=== PATIENT | male | born 1945 | race Caucasian/White ===

== ENCOUNTER 2022-07-16 11:25 | Outpatient (CLI) | payer MEDICARE, OTHER, SELFPAY ==
--- OUTSIDE RECORDS SUMMARY | 2022-07-16 09:05 | XMS_ITS | Clinical Summary ---
:1945 Author Organization [facility] [place] [address] Care Team Providers Name Role Phone Radha Cazares MD Primary Care Provider Allergies Active Allergy Reactions Severity Noted Date Comments Donepezil Headache 06/09/2021 Medications Medication Sig Dispensed Refills Start Date End Date Status aspirin (ECOTRIN) 81 mg Take 1 tablet by 0 7 Active enteric coated tablet mouth once daily with a meal. latanoprost (XALATAN) Place 0.005 0 08/02/2017 Active 0.005 % ophthalmic Drops into both solution eyes once daily. omeprazole (PRILOSEC) Take 1 capsule 1 09/13/2017 Active 40 mg Delayed-Release by mouth once capsule daily before a meal. losartan-hydrochlorothi Take 1 tablet by 0 9 Active azide (HYZAAR) 100-12.5 mouth once mg tablet daily. diltiazem CD (CARDIZEM Take 1 capsule 0 04/16/2019 Active CD) 180 mg extended by mouth once release 24 hr capsule daily. tamsulosin (FLOMAX) 0.4 Take 1 Capsule 90 Capsule 3 12/07/2021 Active mg capsuleIndications: (0.4 mg) by Benign prostatic mouth once daily hyperplasia with after a meal. urinary frequency pyridostigmine Take 1.5 Tablets 360 Tablet 3 12/07/2021 Active (MESTINON) 60 mg (90 mg) by mouth tabletIndications: 4 times daily. Urinary urgency Active Problems Problem Noted Date Urinary frequency 10/05/2017 Encounters Date Type Specialty Care Team Description 05/11/2022 Lab Requisition Kathya Osorio MD from Last 3 Months Immunizations Name Administration Dates Next Due COVID-19 vaccine ([email or web address] 12/03/2020, 11/12/2020 30mcg/0.3mL) PF, MDV Hepatitis A (Adult) 06/11/2005 Influenza A (H1N1), Inactivated 10/16/2009 Influenza, High-dose Inactivated 07/13/2018, 08/30/2017, Influenza, High-dose Quadrivalent 07/09/2021 Inactivated Influenza, IIV3 (Age 6-35 mos) 06/17/2011 Influenza, IIV3 (Age >=3 years) 08/01/2013, 06/12/2012, 07/03, 08/05/2009, 07/18/2008 Influenza, IIV4 07/10/2015, 10/16/2009 Influenza, IIV4 (=>6mos) MDV 07/16/2014 Pneumococcal Poly,23-Valent 05/25/2011 (Pneumovax) Pneumococcal conj 13-Valent (Prevnar 11/08/2016 13) Td (Age >=7 Years) 06/21/2003 Td, Preservative Free (age >= 7 06/11/2005 Years) Tdap 06/12/2012 Zoster (Shingrix-RZV, recombinant) 09/18/2020, 07/07/2020 Zoster (Zostavax-ZVL, live) 09/04/2014 Social History Tobacco Use Types Packs/Day Years Used Date Never Smoker Smokeless Tobacco: Never Used Tobacco Cessation: Counseling Given: Yes Alcohol Use Standard Drinks/Week Comments Yes 0 (1 standard drink = 0.6 oz pure alcoho l) Alcohol Habits Answer Date Recorded How often do you have a drink containing alcohol? 2-4 times a month 04/18/2019 How many drinks containing alcohol do you have on a 1 or 2 04/18/2019 typical day when you are drinking? How often do you have six or more drinks on one Never 04/18/2019 occasion? Comment: Not asked Sex Assigned at Date Recorded Not on file Obstetrics History Last Filed Vital Signs Vital Sign Reading Time Taken Comments Blood Pressure 128/55 12/07/2021 2:56 PM [employer] Pulse 71 12/07/2021 2:56 PM [employer] Temperature 36.6 ??C (97.8 ??F) 04/18/2019 10:50 AM CDT Respiratory Rate 18 04/18/2019 10:50 AM CDT Oxygen Saturation 96% 12/07/2021 2:56 PM [employer] Inhaled Oxygen Concentration - - Weight 99.2 kg (218 lb 11.2 oz) 12/07/2021 2:56 PM [employer] Height - - Body Mass Index - - Plan of Treatment Health Maintenance Due Date Last Done Comments Depression screening for age 12+ 1957 BMI (ht and wt on same day) for 1963 age 18+ Hepatitis C screening for age [birth year]01[birth year]14/1963 18-79 Medicare Wellness for age 65+ 2010 COVID-19 vaccine series (4 - 08/25/2021 06/30/2021, 021, Booster for Pfizer series) 11/12/2020 Influenza for age 65+ 06/03/2022 07/09/2021, 07/13/2018, 08/30/2017, Additional history exists Tetanus booster 06/12/2022 06/12/2012, 06/11/2005, 06/21/2003 Tdap Completed 06/12/2012 Pneumococcal series for age 65+ Completed 11/08/2016, 05/04 Zoster (shingles) series for age Completed 09/18/2020, 02/2020, 50+ 09/04/2014 Procedures Procedure Name Priority Date/Time Associated Diagnosis Comme nts LAB TRACKING EVENT Routine 05/11/2022 9:30 AM CDT PATH TISSUE EXAM Routine 05/11/2022 9:30 AM Resul ts for this CDT procedure are i n the results section. from Last 3 Months Results LAB TRACKING EVENT (05/11/2022 9:30 AM CDT) Specimen Anatomical Collection Method Collection Time Receive d Time (Source) Location / / Volume Laterality Other (Other) Client Collect / 05/11/2022 9:30 AM 0806/2022 4:40 Unknown CDT PM CDT Kathya Osorio MD LAB BILL ONLY Performing Organization Address City/State/ZIP Code Phon e Number [employer] [employer] [address] [place] [address] LABORATORY-CENTRAL 2000 LABORATORY PATH TISSUE EXAM (05/11/2022 9:30 AM CDT) Component Value Ref Test Analysis Performed At [facility] gist Range Method Time Signature Case Report Pathology Report ?Case: [id number] ? 05/13/2022 [employer] [employer] Authorizing Provider: ??Kathya Oakley MD ?? Collected: ? 05/11/2022 0930 ? 10:07 AM BRIELLE GARRISON Ordering Location: ? [facility] CENTRAL LAB ?Received: ?05/11/2022 1733 ? CDT NT [facility] Pathologist: ? Monisha Kemp MD ? LABORATORY Specimens: ?? A) - Abdomen ? B) - Righ t flank ? Final A) SKIN, RIGHT ABDOMEN, EXCISION: [facility] 1. Seborrheic keratosis 10:07 AM JOSEPH SUN signed by 2. Negative for malignancy CDT NTR AL Monisha Kemp MD on B) SKIN, RIGHT FLANK, EXCISION: 05/13/2022 at 1. Seborrheic keratosis 10:07 AM 2. Negative for malignancy Clinical Mass/SK 05/13/2022 [facility] [employer] Information 10:07 AM LABORATORY-CE CDT NTRAL LABORATORY Gross A) Received in formalin, lab eled with the patient's name and right abdomen, is a 2.5 x 1.8 cm skin biopsy. There is a 2.5 x 1.8 x 0.3 cm raised, crusted, friable brown-black lesion. The specimen is in 05/13/2022 [facility] Description ked yellow, sectioned and entirely submitted in 3 guero ettes. 10:07 AM LABORATORY-CE CDT NTRAL B) Received in formalin, lab eled with the patient's name and right flank, is a 3.2 x 2.0 cm skin biopsy. There is a 3.2 x 2.0 x 0.2 cm slightly raised, crusted, friable jolley-juarez lesion. The specimen i LABORATORY s inked orange, sectioned and entirely submitted in 4 casset joseph. SSS 05/11/2022 Microscopic The final diagnosis is based on microscopic examination of appropriate sections of all specimens. 05/13/2022 [facility] Description 10:07 AM LABORATORY-CE CDT NTRAL A) The epidermis shows acant hosis and hyperkeratosis. No significant atypia is seen. The presence of ??yellow ink is confirmed on tissue sections. LABORATORY B) The epidermis shows acant hosis and hyperkeratosis. No significant atypia is seen. The presence of ??orange ink is confirmed on tissue sections. Additional 05/13/2022 [employer] Information Interpreted at [facility], Central Laboratory - [address], [place] [address] 10:07 AM LABORATORY-CE CDT NTRAL LABORATORY Specimen Anatomical Collection Method Collection Time Receive d Time (Source) Location / / Volume Laterality Other SPECIMEN FROM 05/11/2022 9:30 AM 05/11/20 22 5:33 TRUNK / Unknown CDT PM CDT Specimen 05/11/2022 9:35 AM 2 5:33 (specimen) CDT PM CDT (Right flank) Kathya Osorio MD PATHOLOGY/CYTOLOGY Performing Organization Address City/State/ZIP Code Phon e Number [employer] [employer] [address] [place] [address] LABORATORY-CENTRAL 2000 LABORATORY from Last 3 Months Insurance Payer Benefit Plan / Subscriber ID Effective Dates Phone Addre ss Type Group [employer] [id number] 2016-Present [address] [address] [employer] [address] [address] [address] [place] [address] [place] , ([place]) [place] [address] Care Teams Solid Waste Manager Relationship Specialty Start Date End Date Radha Cazares MD PCP - General Internal Medicine 08/25/201999 [place] [address]
[2022-07-16 11:23] LABS: Chloride* 108 mmol/L (96-114); Sodium* 139 mmol/L (135-149)
[2022-07-16 11:26] LABS: Creatinine* 1.2 mg/dL (0.5-1.5); Estimated Glomerular Filt Rate 62 ml/min
[2022-07-16 11:27] LABS: Blood Urea Nitrogen* 19 mg/dL (7-30); Calcium* 9.4 mg/dL (8.4-10.6); Carbon Dioxide* 30 mmol/L (20-32); Glucose* 139 mg/dL (60-115)
== END 2022-07-16 11:26 | disposition home or self-care (01) ==
PROVIDERS: PCP Internal Medicine; Visit Provider Internal Medicine
DX: I10 Essential (primary) hypertension (principal)
CPT/HCPCS: 80048

== ENCOUNTER 2022-10-13 06:40 | Day surgery (SDC) | payer MEDICARE, OTHER, SELFPAY ==
[2022-10-13] MEDS: KETOROLAC OPHTH 0.5% 1 DROP EYE-LEFT ×3 (06:50→07:00)
[2022-10-13] MEDS: TETRACAINE 0.5% OPHTH 1 DROP EYE-LEFT ×2 (06:50→06:55)
[2022-10-13 06:53] VITALS: BMI 30.5
[2022-10-13 07:04] VITALS: BP 150/73; PULSE 63; RESP 16; TEMP 36.6; O2SAT 99
[2022-10-13] MEDS: SODIUM CHLORIDE 0.9 % (FLUSH) 10 ML SYRINGE IVF (07:08)
--- NOTE | 2022-10-13 07:18 | SUR.PREOP ---
Home Covid Negative.
[2022-10-13] MEDS: TETRACAINE 0.5% OPHTH 2 DROP EYE-LEFT (08:16)
[2022-10-13] MEDS: BALANCED SALT IRRIG SOLN 15 ML EYE-LEFT (08:20)
--- NOTE | 2022-10-13 08:55 | W.ANESCHARGE ---
Anesthesia Charges Start Date/Time Anesthesia Start Date: 10/13/22 Anesthesia Start Time: 08:11 Stop Date/Time Anesthesia Stop Date: 10/13/22 Anesthesia Stop Time: 08:56 Summary Emergency: No Extremes of Age: Over 70-CPT 08668
[2022-10-13 09:03] VITALS: BP 140/74; PULSE 58; RESP 16; TEMP 36.6; O2SAT 94
--- NOTE | 2022-10-13 09:09 | W.ANESCHARGE ---
Anesthesia Charges Start Date/Time Anesthesia Start Date: 10/13/22 Anesthesia Start Time: 08:11 Stop Date/Time Anesthesia Stop Date: 10/13/22 Anesthesia Stop Time: 08:56 Summary Emergency: No Extremes of Age: Over 70-CPT 90728
--- NOTE | 2022-10-13 09:44 | P.OPTPRC_ITS ---
Procedure Note Date of procedure: 10/13/22 Will [facility] bill your pro fee for this procedure?: Yes Procedure Description: SURGEON: Danica Villalobos MD PREOPERATIVE DIAGNOSIS: 1. Nuclear sclerotic cataract, left eye. 2. Miosis, left eye. POSTOPERATIVE DIAGNOSIS: 1. Nuclear sclerotic cataract, left eye. 2. Miosis, left eye. NAME OF OPERATION: Phacoemulsification of cataract with posterior chamber intraocular lens implantation in the left eye with pupilloplasty. ANESTHESIA: Topical. ESTIMATED BLOOD LOSS: Less than 2 cc. COMPLICATIONS: None. PATHOLOGY SPECIMEN: None. INDICATIONS: See consult note for details. The risks, benefits and alternatives of the procedure were explained to the patient, who elected to proceed and signed informed consent to do so. PROCEDURE: The patient was brought to the pre-holding area where the left eye was identified as the operative eye. I placed my initials above this eye. The patient received eye drops consisting of 0.5% tetracaine, 1% tropicamide, 10% phenylephrine, and 0.5% ketorolac. The patient was then brought to the operating room where the left eye was again identified as the operative eye. The eye was prepped with Betadine and draped in the usual sterile ophthalmic fashion. A #15 super-sharp blade was used to create a paracentesis site. 1% non-preserved intracameral lidocaine was injected into the anterior chamber. Endocoat was injected into the anterior chamber. A 2.4 mm keratome was used to create a three-plane self-sealing incision 1 mm anterior to the temporal limbus. A #15 super-sharp blade was used to create four additional paracentesis sites. Four Grieshaber iris hooks were placed in order to stretch the iris. A cystotome was used to create an anterior capsular leaflet. The Utrata forceps were used to extend this to form a continuous curvilinear capsulorrhexis. Hydrodissection was performed. The cataract was removed with phacoemulsification using the [id number] technique. The irrigation and aspiration tip was used to remove the remaining cortex. Healon was injected into the capsular bag. An KSENIA ZCB00 intraocular lens of 12.0 diopters was injected into the capsular bag. The four Grieshaber iris hooks were removed. The irrigation and aspiration tip was used to remove the remaining viscoelastic. Miostat was injected into the anterior chamber. Balanced salt solution on a cannula was used to hydrate the wound, and the wound was found to be watertight. The pupil was noted to be round. DISPOSITION: The patient was taken to the recovery room and discharged to home in stable condition. The patient was instructed to call me or go to the emergency department with any sudden change, including dramatic loss of vision, severe pain in the eye or eyebrow region, nausea, or vomiting. The patient will follow up in the clinic tomorrow morning. Surgeon: Danica Villalobos MD
== END 2022-10-13 09:17 | disposition home or self-care (01) ==
PROVIDERS: PCP Internal Medicine; Visit Provider Ophthalmology
PROC: (CPT 66982; principal; 2022-10-13 06:45)
DX: H25.12 Age-related nuclear cataract, left eye (principal); H57.03 Miosis
CPT/HCPCS: 66982; 00142; 99100; A9270; J2250; J3010; V2632

== ENCOUNTER 2022-10-27 06:44 | Day surgery (SDC) | payer MEDICARE, OTHER, SELFPAY ==
--- NOTE | 2022-10-27 06:55 | SUR.PREOP ---
Patient provided home covid negative results to RN.
[2022-10-27] MEDS: TETRACAINE 0.5% OPHTH 1 DROP EYE-RIGHT ×2 (07:02→07:09)
[2022-10-27 07:06] VITALS: BMI 30.5
[2022-10-27] MEDS: KETOROLAC OPHTH 0.5% 1 DROP EYE-RIGHT ×3 (07:07→07:24)
[2022-10-27 07:15] VITALS: BP 149/75; PULSE 63; RESP 16; TEMP 37; O2SAT 98
[2022-10-27] MEDS: SODIUM CHLORIDE 0.9 % (FLUSH) 10 ML SYRINGE IVF (07:27)
[2022-10-27] MEDS: TETRACAINE 0.5% OPHTH 2 DROP EYE-RIGHT (07:56)
[2022-10-27] MEDS: BALANCED SALT IRRIG SOLN 15 ML EYE-RIGHT (08:00)
--- NOTE | 2022-10-27 08:01 | W.ANESCHARGE ---
Anesthesia Charges Start Date/Time Anesthesia Start Date: 10/27/22 Anesthesia Start Time: 07:54 Stop Date/Time Anesthesia Stop Date: 10/27/22 Anesthesia Stop Time: 08:40 Summary Emergency: No Extremes of Age: Over 70-CPT [id number]
--- NOTE | 2022-10-27 08:14 | SUR.PREOP ---
The eye drops brought by the patient (Ketorolac and Prednisolone) are examined and I have determined they are labeled by the patient's pharmacy for this patient as prescribed by the surgeon. The bottles are intact, recently obtained and appear to be correct.
[2022-10-27 08:37] VITALS: BP 132/69; PULSE 56; RESP 16; TEMP 36.7; O2SAT 96
--- NOTE | 2022-10-27 08:38 | P.OPTPRC_ITS ---
Procedure Note Date of procedure: 10/27/22 Will [facility] bill your pro fee for this procedure?: Yes Procedure Description: SURGEON: Danica Villalobos MD PREOPERATIVE DIAGNOSIS: 1. Nuclear sclerotic cataract, right eye. 2. Miosis, right eye. POSTOPERATIVE DIAGNOSIS: 1. Nuclear sclerotic cataract, right eye. 2. Miosis, right eye. NAME OF OPERATION: Phacoemulsification of cataract with posterior chamber intraocular lens implantation in the right eye with pupilloplasty. ANESTHESIA: Topical. ESTIMATED BLOOD LOSS: Less than 2 cc. COMPLICATIONS: None. PATHOLOGY SPECIMEN: None. INDICATIONS: See consult note for details. The risks, benefits and alternatives of the procedure were explained to the patient, who elected to proceed and signed informed consent to do so. PROCEDURE: The patient was brought to the pre-holding area where the right eye was identified as the operative eye. I placed my initials above this eye. The patient received eye drops consisting of 0.5% tetracaine, 1% tropicamide, 10% phenylephrine, and 0.5% ketorolac. The patient was then brought to the operating room where the right eye was again identified as the operative eye. The eye was prepped with Betadine and draped in the usual sterile ophthalmic fashion. A #15 super-sharp blade was used to create a paracentesis site. 1% non-preserved intracameral lidocaine was injected into the anterior chamber. Endocoat was injected into the anterior chamber. A 2.4 mm keratome was used to create a three-plane self-sealing incision 1 mm anterior to the temporal limbus. A #15 super-sharp blade was used to create four additional paracentesis sites. Four Grieshaber iris hooks were placed in order to stretch the iris. A cystotome was used to create an anterior capsular leaflet. The Utrata forceps were used to extend this to form a continuous curvilinear capsulorrhexis. Hydrodissection was performed. The cataract was removed with phacoemulsification using the [id number] technique. The irrigation and aspiration tip was used to remove the remaining cortex. Healon was injected into the capsular bag. An KSENIA ZCB00 intraocular lens of 12.0 diopters was injected into the capsular bag. The four Grieshaber iris hooks were removed. The irrigation and aspiration tip was used to remove the remaining viscoelastic. Miostat was injected into the anterior chamber. Balanced salt solution on a cannula was used to hydrate the wound, and the wound was found to be watertight. The pupil was noted to be round. DISPOSITION: The patient was taken to the recovery room and discharged to home in stable condition. The patient was instructed to call me or go to the emergency department with any sudden change, including dramatic loss of vision, severe pain in the eye or eyebrow region, nausea, or vomiting. The patient will follow up in the clinic tomorrow morning. Surgeon: Danica Villalobos MD
--- NOTE | 2022-10-27 09:34 | W.ANESCHARGE ---
Anesthesia Charges Start Date/Time Anesthesia Start Date: 10/27/22 Anesthesia Start Time: 07:54 Stop Date/Time Anesthesia Stop Date: 10/27/22 Anesthesia Stop Time: 08:40 Summary Emergency: No Extremes of Age: Over 70-CPT 01015
== END 2022-10-27 09:10 | disposition home or self-care (01) ==
PROVIDERS: PCP Internal Medicine; Visit Provider Ophthalmology
PROC: (CPT 66982; principal; 2022-10-27 06:45)
DX: H25.11 Age-related nuclear cataract, right eye (principal); H57.03 Miosis
CPT/HCPCS: 66982; 00142; 99100; A9270; J2250; J3010; V2632

== ENCOUNTER 2023-09-15 08:44 | Outpatient (CLI) | payer MEDICARE, OTHER, SELFPAY | END 2023-09-15 08:45 | disposition home or self-care (01) | LOC: NFLDREF 09-16 12:25 | PROVIDERS: PCP Internal Medicine; Referring Provider Internal Medicine; Visit Provider Internal Medicine | DX: Z00.00 Encounter for general adult medical examination without abnormal findings (principal); I10 Essential (primary) hypertension; I25.10 Atherosclerotic heart disease of native coronary artery without angina pectoris | CPT/HCPCS: 80048; 80061 ==

== ENCOUNTER 2024-05-04 12:08 | Emergency (ER) | payer MEDICARE, OTHER, SELFPAY ==
[2024-05-04 12:19] VITALS: BP 149/60; PULSE 72; RESP 18; TEMP 36.2; O2SAT 97; BMI 27.1
--- NOTE | 2024-05-04 12:43 | ED_ITS ---
HPI - General Adult General Time Seen by Provider: 12:43 Date Seen: 05/04/24 Chief complaint: Post Op Complication Stated complaint: Had growths removed this AM, had signi. blood loss Time Seen by Provider: 05/04/24 12:11 Source: patient Mode of arrival: ambulatory Limitations: no limitations History of Present Illness HPI narrative: Andrea is a very pleasant 79-year-old gentleman with history of Plavix and aspirin use because of stent placement 1 year ago, coronary artery disease and multiple seborrheic keratoses sees who comes to the emergency room with bleeding after a dermatological procedure. Amarjit had been seen at [facility] in [place] this morning and had 4 separate areas of seborrheic reoccurred keratosis ease which were quite overgrown removed by surgical excision with some cautery. They were becoming so large that they are catching on his clothes. He does not think this was skin cancer. Initially he was unsure if these were cauterized off, excised or burned off with liquid nitrogen. He had not discontinued his Plavix or aspirin. He stated that he was not told to do so. He takes Plavix in the morning and aspirin in the evening. According to the his there was no observation. After these lesions were removed. She states that they immediately left went to the car and once in the car went home which is about a [address] When they got home there was a large amount of blood on the back of their car seat. At home there was continuous bleeding from around the bandages 2 on his back in 2 on his lower chest area. When at the irrigation tax assessor collector they had been instructed to put pressure on this area for 20 minutes and if it did not stop they were to go to the emergency room. They were not instructed to return to the irrigation tax assessor collector nor to call the office. Related Data Home Medications ?Medication ?Instructions ?Recorded ?Confirmed latanoprost 0.005 % eye drops 1 drp ophthalmic (eye) .Bedtime 04/12/22 05/04/24 atorvastatin 40 mg tablet 40 mg PO QDAY 05/31/23 05/04/24 aspirin 81 mg tablet,delayed 81 mg PO .every other day 09/19/23 05/04/24 release (Adult Low Dose Aspirin) nitroglycerin 0.4 mg sublingual 0.4 mg sublingual PRN 09/19/23 11/21/23 tablet pyridostigmine bromide 60 mg tablet 120 mg PO TID 09/19/23 05/04/24 clopidogrel 75 mg tablet 75 mg PO QDAY 11/21/23 05/04/24 Previous Rx's ?Medication ?Instructions ?Recorded diltiazem HCl 180 mg 180 mg PO DAILY #90 caps 09/19/23 capsule,extended release 24 hr losartan 100 1 tab PO DAILY #90 tabs 09/19/23 mg-hydrochlorothiazide 12.5 mg tablet omeprazole 40 mg capsule,delayed 40 mg PO QDAY #90 caps 09/19/23 release quetiapine 25 mg tablet (Seroquel) 12.5 - 25 mg (0.5 - 1 x 25 mg) PO 09/19/23 QHS PRN anxiety #180 tabs tamsulosin 0.4 mg capsule 0.4 mg PO DAILY #90 caps 09/19/23 Allergies Allergy/AdvReac Type Severity Reaction Status Date / Time No Known Allergies Allergy Mild none Verified 05/04/24 12:17 Review of Systems Status of ROS: Reports: 6 or more systems reviewed and unremarkable except as noted in History and below [facility] Surgical History History of cataract surgery ?Z98.49 - Cataract extraction status, unspecified eye (ICD-10) History of tonsillectomy ?Z90.89 - Acquired absence of other organs (ICD-10) History of malignant neoplasm of skin ?Z85.828 - Personal history of other malignant neoplasm of skin (ICD-10) Social History What is your current living situation?: I presently have a place to live Problems where you live: declined to answer In the past 12 months, utilities in danger of being shut off: no In past 12 months, lack of transportation kept you from medical appts, meetings, work, or getting things needed for daily living: no In the past 12 mos, have been you worried that your food would run out before you had money to buy more?: never true In the past 12 mos, the food you bought just didn't last and you didn't have mo trina to buy more?: never true Smoking Status: Never smoker Do you use any of these nicotine containing products: None How often do you have a drink containing alcohol: monthly or less AUDIT-C Alcohol total score: 1 Non-prescribed substance use: denies use Caffeine: Yes How often does anyone, including family, friends and others, physically hurt you : never How often does anyone, including family, friends and others, insult or talk down to you: never How often does anyone, including family, friends and others, threaten you with harm: never How often does anyone, including family, friends and others, scream or curse at you: never Little interest or pleasure in doing things: not at all Feeling down, depressed, or hopeless: not at all Exam Narrative: Exam Narrative: He is alert and oriented. Very pleasant gentleman. Good color. Normal vital signs. Examination of the lesions on his lower chest area show them to be approximately quarter-size. Lesion on his right is continually oozing. The underlying skin appears macerated. No discrete area that would benefit from suturing. Continue ooze noted from this area. On his back he has 2 separate areas at approximately T11. Similar in appearance to the wounds on his front. Both oozing. Left wound seems to be experiencing increased bleeding. Blood is somewhat serous. Procedure: Use Gelfoam on 3 of the wounds 1 on his lower chest and 2 on his back. Covered then with gauze and bandages. Will monitor. Const: Vital Signs, click to edit/add: Vital Signs - 24 hr 05/04/24 12:19 Temperature 97.2 F L Pulse Rate [Pulse Oximeter] 72 Respiratory Rate 18 Blood Pressure [Ri ght Upper Arm] 149/60 H Pulse Oximetry 97 Oxygen Delivery Me thod Room Air Documenting provider has reviewed patient's vital signs: yes Course Course ED Course: At this time Andrea is experiencing complications of a dermatological procedure. I did speak to the irrigation tax assessor collector's office. They state that they do tell patient is not to take their aspirin but Andrea was on aspirin and Plavix and states he had not been told to discontinue. In a addition they do not have any rescue no procedures for bleeding from the dermatological procedures they are doing in the office. He her they also only monitoring for approximately 1 minute after doing the procedure. I believe that Andrea is bleeding secondary to the use of Plavix and aspirin. Will have him wait here to ensure that the bleeding has discontinued. Reevaluation(s) Reevaluation #1: I did reenter the room and wounds appear hemostatic. Will allow Andrea to go home. Vital Signs Vital signs: Initial Vital Signs Temperature 97.2 F L 05/04/24 12:19 Temperature Source Temporal Artery Scan 05/04/24 12:19 Pulse Rate 72 05/04/24 12:19 Pulse Rhythm Regular 05/04/24 12:19 Respiratory Rate 18 05/04/24 12:19 Blood Pressure 149/60 H 05/04/24 12:19 Blood Pressure Mean 89 05/04/24 12:19 Blood Pressure Position Sitting 05/04/24 12:19 Pulse Oximetry 97 05/04/24 12:19 Oxygen Delivery Method Room Air 05/04/24 12:19 Vital Signs Temperature 97.2 F L 05/04/24 12:19 Pulse Rate 72 05/04/24 12:19 Respiratory Rate 18 05/04/24 12:19 Blood Pressure 149/60 H 05/04/24 12:19 Pulse Oximetry 97 05/04/24 12:19 Oxygen Delivery Method Room Air 05/04/24 12:19 Temperature 97.2 F L 05/04/24 12:19 Pulse Rate 72 05/04/24 12:19 Respiratory Rate 18 05/04/24 12:19 Blood Pressure 149/60 H 05/04/24 12:19 Pulse Oximetry 97 05/04/24 12:19 Oxygen Delivery Method Room Air 05/04/24 12:19 Medical Decision Making MDM Narrative Medical decision making narrative: 1. Post operative dermatological bleeding-wounds did appear to be hemostatic after Andrea had been in the ED for extended period. Now nursing does tell me that the wound on his lower chest is bleeding again. Will plan on re-dressing with Gelfoam and dressing. 2. Disposition-hold aspirin and Plavix for the next 36 hours. Will have him restart on Tuesday morning after the bandages are removed and bleeding is hemostatic. Seek medical attention for fever chills. I did ask the Dermatology office if they see patients in follow-up and they do not. Andrea will half to recheck with his primary MD if he has continued oozing or return to the emergency room if bleeding intensifies. I did state to Andrea and his that I had spoken to the irrigation tax assessor collector office in regards to their need to ensure that patient's hold anti-platelet medications as well as anticoagulation prior to procedures such as what he experienced this morning. Addendum: Wounds on the back remained hemostatic. Lower chest area was bleeding. Pressure was applied after the initial bandages were removed. I did use cautery to 3 separate areas. This did seem to help quite a bit. Gelfoam was reapplied as well as a pressure dressing. Patient was observed in the emergency room for additional time. And no further bleeding was noted. Also checked the bandages on his back and there was no evidence of blood coming through this area. Patient was discharged home. Would ask him to relax today. Have asked him to hold Plavix and aspirin until Tuesday. Return as needed. Medical Records Medical records narrative: I spoke with Maribeth from [facility] in regards to this patient. We have ascertained that this was removal of large seborrheic keratosis ease and not cancerous wounds. We have ascertained that this was excision followed by some cautery. Discharge Plan Discharge Clinical Impression: Post-op bleeding Patient Disposition: Home, Self-Care Condition: Improved Additional Instructions: Keep surgical wounds covered. Hold Plavix and aspirin until Tuesday when you may restart after you take the dressings off and there is no bleeding. Seek medical attention for increased bleeding, fever chills and as needed. Prescriptions: No Action latanoprost 0.005 % drops 1 drp ophthalmic (eye) .Bedtime pyridostigmine bromide 60 mg tablet 120 mg PO TID aspirin [Adult Low Dose Aspirin] 81 mg tablet,delayed release (DR/EC) 81 mg PO .every other day clopidogrel 75 mg tablet 75 mg PO QDAY atorvastatin 40 mg tablet 40 mg PO QDAY nitroglycerin 0.4 mg tablet, sublingual 0.4 mg sublingual PRN tamsulosin 0.4 mg capsule 0.4 mg PO DAILY Qty: 90 3RF losartan-hydrochlorothiazide 100-12.5 mg tablet 1 tab PO DAILY Qty: 90 3RF diltiazem HCl 180 mg capsule,extended release 24hr 180 mg PO DAILY Qty: 90 3RF omeprazole 40 mg capsule,delayed release(DR/EC) 40 mg PO QDAY Qty: 90 3RF quetiapine [Seroquel] 25 mg tablet 12.5 - 25 mg PO QHS PRN (Reason: anxiety) Qty: 180 3RF Rx Instructions: 6.25-12.5 mg every 8 hours while awake as needed. 12.5-25 mg in evening as needed for anxiety. Follow Up/Referrals: Radha Cazares MD [Primary Care Provider] - Stand Alone Forms: Exhibition A Info Instructions
--- OUTSIDE RECORDS SUMMARY | 2024-05-04 13:10 | XMS_ITS | Clinical Summary ---
[facility] Organization [facility] Address [address] [place] [id number] Care Team Providers Care Web Designer Developer Name Role Phone [facility] Unavailable Ralph Kang MD Unavailable González Pendleton MD Unavailable Radha Cazares MD Primary Care Provider González Pendleton MD Unavailable Allergies Active Allergy Reactions Criticality Noted Date Comments Donepezil Headache 06/09/2021 Other reaction(s): Headache Medications Medication Sig Dispensed Refills Start Date End Date Status losartan-hydrochlo rothiazide (HYZAAR) 100-12.5 MG tablet Take 1 tablet by mouth daily 02/02/2023 Active diltiazem ER COATED BEADS (CARDIZEM CD/CARTIA XT) 180 MG 24 hr capsule Take 180 mg by mouth daily 03/10/2023 Active pyridostigmine (MESTINON) 60 MG tablet TAKE 2 TABLETS BY MOUTH FOUR TIMES DAILY 03/02/2023 Active tamsulosin (FLOMAX) 0.4 MG capsule Take 0.4 mg by mouth At Bedtime 12/07/2021 Active QUEtiapine (SEROQUEL) 25 MG tablet Take 12.5 mg by mouth At Bedtime 04/09/2023 Active latanoprost (XALATAN) 0.005 % ophthalmic solution instill 1 drop in both eyes every night at bedtime 03/01/2023 Active nitroGLYcerin (NITROSTAT) 0.4 MG sublingual tabletIndications: Chest pain, unspecified type,Status post coronary angiogram,Coronary artery disease involving [place] coronary artery of [place] heart, unspecified whether angina present For chest pain place 1 tablet under the tongue every 5 minutes for 3 doses. If symptoms persist 5 minutes after 1st dose call 911. 25 tablet 3 05/17/2023 Active aspirin (ASA) 81 MG chewable tablet Take 81 mg by mouth every evening Active omeprazole (PRILOSEC) [address] capsule Take 40 mg by mouth daily 06/08/2023 Active clopidogrel (PLAVIX) 75 MG tabletIndications: Coronary artery disease involving [place] coronary artery of [place] heart without angina pectoris Take 1 tablet (75 mg) by mouth daily Start the day after you finish Brilinta.Take 300 mg (4 tablets) for your first dose, then 1 tablet daily thereafter. 90 tablet 3 04/06/2024 Active atorvastatin (LIPITOR) 40 MG tabletIndications: Coronary artery disease involving [place] coronary artery of [place] heart, unspecified whether angina present Take 1 tablet (40 mg) by mouth daily 90 tablet 3 04/06/2024 Active atorvastatin (LIPITOR) 40 MG tabletIndications: Coronary artery disease involving [place] coronary artery of [place] heart, unspecified whether angina present Take 1 tablet (40 mg) by mouth daily 90 tablet 3 04/22/2023 04/06/2024 Discontinued (Reorder (No AVS)) clopidogrel (PLAVIX) 75 MG tabletIndications: Coronary artery disease involving [place] coronary artery of [place] heart without angina pectoris Take 1 tablet (75 mg) by mouth daily Start the day after you finish Brilinta.Take 300 mg (4 tablets) for your first dose, then 1 tablet daily thereafter. 90 tablet 1 10/10/2023 04/06/2024 Discontinued (Reorder (No AVS)) Active Problems Problem Noted Date Diagnosed Date Coronary artery disease invo lving [place] coronary artery of [place] heart 05/23/2023 Benign essential hypertension 05/23/2023 Hyperlipidemia with target LDL less than 70 05/04 Chest pain 05/23/2023 Abnormal cardiovascular stress test 04/22/2023 Status post coronary angiogram 04/22/2023 Abnormal findings on diagnos tic imaging of heart and coronary circulation 04/22/2023 Chest pain, unspecified type 04/22/2023 Encounters Date Type Department Care Team Description 04/06/2024 Refill M [facility] [address] [place] [address] Kimber Toscano APRN CNP Refill Request (Clopidogrel and Atorvastatin) 02/07/2024 9:00 AM CDT Office Visit [facility] [address] [place] [id number] Kimber Toscano APRN CNP Manoles, Michael Jon, MD Benign essential hypertension (Primary Dx); Coronary artery disease involving [place] coronary artery of [place] heart without angina pectoris 02/07/2024 Travel from Last 3 Months Social History Tobacco Use Types Packs/Day Years Used Date Smoking Tobacco: Never Passive Smoke Exposure: Never Smokeless Tobacco: Never Tobacco Cessation:Counseling Given: Not Answered Alcohol Use Standard Drinks/Week Comments Not Currently 0 (1 standard drink = 0.6 oz pur e alcohol) PHQ-2 Answer Date Recorded PHQ-2 Score 0 04/20/2023 Adolescent Education Answer Date Record ed Getting School Help Needed Not on file 06/25 Sex and Gender Information Value Date Recorded Sex Assigned at Male 04/12/2023 11:30 PM CDT Gender Identity Male 04/12/2023 11:30 PM CDT Sexual Orientation Not on file Last Filed Vital Signs Vital Sign Reading Time Taken Comments Blood Pressure 128/62 02/07/2024 9:10 AM CDT Pulse 68 02/07/2024 9:10 AM CDT Temperature 36.8 ??C (98.3 ??F) 11/14/2023 10:[address] Respiratory Rate 20 11/14/2023 3:24 PM [facility] Oxygen Saturation 100% 11/14/2023 3:24 PM [facility] Inhaled Oxygen Concentration - - Weight 97.5 kg (215 lb) 02/07/2024 9:10 AM CDT Height 182.9 cm (6') 02/07/2024 9:10 AM CDT Body Mass Index 29.16 02/07/2024 9:10 AM CDT Plan of Treatment Health Maintenance Due Date Last Done Comments ADVANCE CARE PLANNING 1945 ANNUAL REVIEW OF HM ORDERS 1945 HEPATITIS C SCREENING 1963 RSV VACCINE ( & 60+) (1 - 1-dose 60+ series) 2005 FALL RISK ASSESSMENT 2010 MEDICARE ANNUAL WELLNESS VISIT 2010 PHQ-2 (once per calendar year) 2023 04/20/2023 COVID-19 Vaccine ( season) 2023 07/06/2023, 03/07/2023, 06/25/2022, Additional history exists INFLUENZA VACCINE (#1) 2024 , 06/25/2022, 07/09/2021, Additional history exists LIPID 08/30/2024 08/30/2023, 04/22/2023 GLUCOSE 11/14/2026 11/14/2023, 08/04, 05/24/2023, Additional history exists DTAP/TDAP/TD IMMUNIZATION (3 - Td or Tdap) 03/07/2033 03/07/2023, 06/12/2012, 06/11/2005, Additional history exists Pneumococcal Vaccine: 65+ Years Completed 11/08/2016, 05/25/2011 ZOSTER IMMUNIZATION Completed 09/18/2020, 07/07/2020, 09/04/2014 HPV IMMUNIZATION Aged Out No longer e ligible based on patient's age to complete this topic IPV IMMUNIZATION Aged Out No longer e ligible based on patient's age to complete this topic MENINGITIS IMMUNIZATION Aged Out No l onger eligible based on patient's age to complete this topic RSV MONOCLONAL ANTIBODY Aged Out No l onger eligible based on patient's age to complete this topic Medical Devices Implanted Type Area Media Aid Device Identifier Shelf Expiration Date Model / Serial / Lot Stent Coronary Dre Synergy Xd Mr Us [id number] - [id number] Implanted:Qty: 1 on 04/22/2023 at [facility] Stent Drug Eluting (DRE) [employer] 10/25/2024 [id number] / / [id number] Procedures Procedure Name Priority Date/Time Associated Diagnosis Comments BASIC METABOLIC PANEL STAT 11/14/2023 12:01 PM [facility] LIPID PROFILE Routine 08/30/2023 11:24 AM [facility] Hyperlipidemia with target LDL less than 70 from Last 3 Months or Most Recently Relevant to Health Maintenance Results * Basic metabolic panel (BMP) (11/14/2023 12:01 PM [facility]) Sodium 141 135 - 145 mmol/L 11/14/2023 12:35 PM [facility] Comment:Reference intervals for this test were updated on 06/28/2023 to more accurately reflect our healthy population. There may be differences in the flagging of prior results with similar values performed with this method. Interpretation of those prior results can be made in the context of the updated reference intervals. Potassium 3.9 3.4 - 5.3 mmol/L 11/14/2023 12:35 PM [facility] Chloride 104 98 - 107 mmol/L 11/14/2023 12:35 PM [facility] Carbon Dioxide (CO2) 28 22 - 29 mmol/L 11/14/2023 12:35 PM [facility] Anion Gap 9 7 - 15 mmol/L 11/14/2023 12:35 PM [facility] Urea Nitrogen 16.5 8.0 - 23.0 mg/dL 11/14/2023 12:35 PM [facility] Creatinine 1.04 0.67 - 1.17 mg/dL 11/14/2023 12:35 PM [facility] GFR Estimate 73 >60 mL/min/1. 73m2 11/14/2023 12:35 PM [facility] Calcium 9.6 8.8 - 10.2 mg/dL 11/14/2023 12:35 PM [facility] Glucose 91 70 - 99 mg/dL 11/14/2023 12:35 PM [facility] Blood STRUCTURE OF LEFT HAND / Unknown Venipuncture / Unknown 11/14/2023 12:01 PM [facility] 11/14/2023 12:09 PM [facility] Daquan Read MD LAB - BLOOD ORDERABL ES LAB[facility]ATORY [facility] [address] Lab (1st floor, no room number) [place] [address], [facility] [phone] * Lipid Profile (08/30/2023 11:24 AM [facility]) Cholesterol 116 <200 mg/dL 08/30/2023 7:35 PM [facility] Triglycerides 88 <150 mg/dL 08/30/2023 7:35 PM [facility] Direct Measure HDL 64 >=40 mg/dL 2022 7:35 PM [facility] LDL Cholesterol Calculated 34 <=100 mg/dL 08/30/2023 7:35 PM [facility] Non HDL Cholesterol 52 <130 mg/dL 08/30/2023 7:35 PM [facility] Blood STRUCTURE OF RIGHT UPPER LIMB / Unknown Venipuncture / Unknown 08/30/2023 11:24 AM [facility] 08/30/2023 11:24 AM [facility] Narrative [facility] - 08/30/2023 7:35 PM [facility] Cholesterol Desirable: ??<200 mg/dL Triglycerides Normal: ??Less than 150 mg/dL Borderline High: ??150-199 mg/dL High: ??200-499 mg/dL Very High: ??Greater than or equal to 500 mg/dL Direct Measure HDL Female: ??Greater than or equal to 50 mg/dL Male: ??Greater than or equal to 40 mg/dL LDL Cholesterol Desirable: ??<100mg/dL Above Desirable: ??100-129 mg/dL Borderline High: ??130-159 mg/dL High: ??160-189 mg/dL Very High: ??>= 190 mg/dL Non HDL Cholesterol Desirable: ??130 mg/dL Above Desirable: ??130-159 mg/dL Borderline High: ??160-189 mg/dL High: ??190-219 mg/dL Very High: ??Greater than or equal to 220 mg/dL Kimber Toscano APRN WEATHERIZATION TECHNICIAN LAB - BLOOD ORD ERABLES [facility] [address] [place] [address], [facility] [phone] from Last 3 Months or Most Recently Relevant to Health Maintenance Advance Directives For more information, please contact: [phone] * Full Code (Latest Code Status on File) Date Activated Date Inactivated Comments 05/23/2023 7:07 PM 05/24/2023 2:09 PM All basic an d advanced life-sustaining interventions are performed as appropriate Question Answer Comments Code status determined by: Unable to det ermine; FULL CODE until documents or legal decision maker available Care Teams Web Designer Developer Relationship Specialty Start Date End Date Radha Cazares MD [facility] [address] [place] [address] PCP - General Internal Medicine 04/20/[address] [address] 04/07/23 Ralph Kang MD [address] [id number] Cardiovascular Disease 04/08/23 González Pendleton MD [address] [id number] Cardiovascular Disease 04/20/23 González Pendleton MD [address] [place] [id number] Assigned Heart and Vascular Provider 02/23/24
--- OUTSIDE RECORDS SUMMARY | 2024-05-04 13:10 | XMS_ITS | Encounter Summary ---
Author Organization [place] Address [address] [place] [address]. [place] [address] Care Team Providers Care Bleacher Sulfite Pulp Name Role Phone Clinic - [facility] Unavailable Ralph Kang MD Unavailable González Pendleton MD Unavailable Radha Cazares MD Primary Care Provider Penny Conde Unavailable [phone] González Pendleton MD Unavailable [phone] Reason for Visit * Reason Onset Date Comments Refill Request 04/06/2024 Clopidogrel and Atorvastatin Encounter Details Date Type Department Care Team (Late st Contact Info) Description 04/06/2024 [facility] [address] [place] [address] Kimber Toscano APRN UKE DRIVER [address] [place] [id number] Refill Request (Clopidogrel and Atorvastatin) Social History Tobacco Use Types Packs/Day Years Used Date Smoking Tobacco: Never Passive Smoke Exposure: Never Smokeless Tobacco: Never Alcohol Use Standard Drinks/Week Comments Not Currently [...] PM CDT Sexual Orientation Not on file documented as of this encounter Miscellaneous Notes * Telephone Encounter - Timothy Emerson RN - 04/06/2024 9:29 AM CDT [facility] Cardiology Refill Guideline reviewed. Medication meets criteria for refill. * Addendum Note - Timothy Emerson RN - 04/06/2024 9:29 AM CDTAddended by: TIMOTHY EMERSON on: 04/06/2024 10:08 AM Modules accepted: Orders documented in this encounter Plan of Treatment Not on file documented as of this encounter Visit Diagnoses Diagnosis Coronary artery disease involving [place]is coronary artery of [place]halis heart, unspecified whether angina present documented in this encounter Care Teams Bleacher Sulfite Pulp Relationship Specialty Start Date End Date Radha Cazares MD [facility] [address] [place] [address] PCP - General Internal Medicine 04/20/[address] [address] 04/07/23 Ralph Kang MD [address] [id number] Cardiovascular Disease 04/08/23 González Pendleton MD [address] [address] Cardiovascular Disease 04/20/23 Penny Conde EP [facility] [address] [address] Cardiac Rehabilitation Therapist 04/29/23 04/29/24 González Pendleton MD [address] [address] Assigned Heart and Vascular Provider 02/23/24 documented as of this encounter
--- OUTSIDE RECORDS SUMMARY | 2024-05-04 13:10 | XMS_ITS | Clinical Summary ---
Author Organization [facility] Address [place], [place] [address] Care Team Providers Care Watchguard Name Role Phone Radha Cazares MD Primary Care Provider [phone] Allergies Active Allergy Reactions Criticality Noted Date Comments Donepezil Headache 06/09/2021 Medications Medication Sig Dispensed Refills Start Date End Date Status aspirin (ECOTRIN) 81 mg enteric coated tablet Take 1 tablet by mouth once daily with a meal. 0 09/05/2017 Active latanoprost (XALATAN) 0.005 % ophthalmic solution Place 0.005 Drops into both eyes once daily. 08/02/2017 Active omeprazole (PRILOSEC) 40 mg Delayed-Release capsule Take 1 capsule by mouth once daily before a meal. 1 09/13/2017 Active losartan-hydrochlorot hiazide (HYZAAR) 100-12.5 mg tablet Take 1 tablet by mouth once daily. 0 04/02/2019 Active diltiazem CD (CARDIZEM CD) 180 mg extended release 24 hr capsule Take 1 capsule by mouth once daily. 04/16/2019 Active pyridostigmine (MESTINON) 60 mg tabletIndications:Uri nary urgency Take 1.5 Tablets (90 mg) by mouth 4 times daily. 360 Tablet 3 12/07/2021 Active quetiapine fumarate (QUETIAPINE ORAL)Indications:anxi ety Take 25 mg by mouth every 8 hours if needed (Take 1/4 to 1/2 tablet every 8 hours while awake as needed. Take 1/2 to 1 tablet in evening as needed for anxiety.). Take 1/4 to 1/2 tablet every 8 hours while awake as needed. Take 1/2 to 1 tablet in evening as needed for anxiety. Active atorvastatin (LIPITOR) 40 mg tablet Take 40 mg by mouth once daily. Active tamsulosin (FLOMAX) 0.4 mg capsuleIndications:Be nign prostatic hyperplasia with urinary frequency Take 1 Capsule (0.4 mg) by mouth once daily after a meal. 90 Capsule 3 08/17/2023 Active ticagrelor (BRILINTA) 90 mg tablet Take 90 mg by mouth two times daily. 04/22/2023 Active Active Problems Problem Noted Date Diagnosed Date Urinary frequency 10/05/2017 Immunizations Name Administration Dates Next Due COVID-19 vaccine ([employer] NTFriendemic 30mcg/0.3mL) PF, MDV 12/03/2020,11/12/2020 Hepatitis A (Adult) 06/11/2005 Influenza A (H1N1), Inactivated 10/16/2009 Influenza, High-dose Inactivated 07/13/2018,08/04,07/22/2016 Influenza, High-dose Quadriv alent Inactivated 07/09/2021 Influenza, IIV3 (Age 6-35 mos) 06/17/2011 Influenza, IIV3 (Age >=3 years) 08/01/20 13,06/12/2012,07/14/2010,2008,07/18/2008 Influenza, IIV4 07/10/2015,10/16/2009 Influenza, IIV4 (=>6mos) MDV 07/16/2014 Pneumococcal Poly,23-Valent (Pneumovax) 05/25/2011 Pneumococcal conj 13-Valent (Prevnar 13) 11/08/2016 Td (Age >=7 Years) 06/21/2003 Td, Preservative Free (age > = 7 Years) 06/11/2005 Tdap 06/12/2012 Zoster (Shingrix-RZV, recombinant) 09/18/2020, Zoster (Zostavax-ZVL, live) 09/04/2014 Social History Tobacco Use Types Packs/Day Years Used Date Smoking Tobacco: Never Smokeless Tobacco: Never Tobacco Cessation:Counseling Given: Yes Alcohol Use Standard Drinks/Week Comments Yes 0 (1 standard drink = 0.6 oz pur e alcohol) Sex and Gender Information Value Date Recorded Sex Assigned at Not on file Gender Identity Not on file Sexual Orientation Not on file Obstetrics History Last Filed Vital Signs Vital Sign Reading Time Taken Comments Blood Pressure 164/80 05/19/2023 2:00 PM CDT Max BP with exercise Pulse 72 08/17/2023 10:20 AM MD PSYCHIATRY Temperature 36.6 ??C (97.8 ??F) 04/18/2019 1 0:50 AM CDT Respiratory Rate 18 05/19/2023 2:00 PM CDT Oxygen Saturation 98% 08/17/2023 10: 20 AM MD PSYCHIATRY Inhaled Oxygen Concentration - - Weight 95.3 kg (210 lb 3.2 oz) 08/17/2023 10:20 AM MD PSYCHIATRY Height 180.3 cm (5' 11) 05/19/2023 2:0 0 PM CDT Body Mass Index 29.32 05/19/2023 2:00 PM CDT Plan of Treatment Upcoming Encounters Date Type Department Care Team (Late st Contact Info) Description 08/21/2024 11:20 AM MD PSYCHIATRY Office Visit [facility] [address] [place] [address] Sabrina Alcaraz PA [address] [place] [address] Health Maintenance Due Date Last Done Comments BMI (ht and wt on same day) for age 18+ 1963 Hepatitis C screening for ag e 18-79 1963 Medicare Wellness for age 65+ 2010 Tetanus booster 06/12/2022 06/12/2012, 06/2005, 06/21/2003 COVID-19 vaccine series ( season) 2023 07/06/2023, 03/07/2023, 06/25/2022, Additional history exists Influenza for age 65+ 06/03/2024 07/09/2021 , 07/13/2018, 08/30/2017, Additional history exists Depression screening for age 12+ 08/19/2024 08/19/20, 05/19/2023 Tdap Completed 06/12/2012 Pneumococcal series for age 65+ Completed 7, 05/25/2011 Zoster (shingles) series for age 50+ Completed 09/18/2020, 07/07/2020, 09/04/2014 Care Teams Watchguard Relationship Specialty Start Date End Date Radha Cazares MD [address] [place] [address] PCP - General Internal Medicine 08/25/20
--- OUTSIDE RECORDS SUMMARY | 2024-05-04 13:10 | XMS_ITS | Encounter Summary ---
Author Organization [place] Address [facility] hospital[facility] [place] [address] Care Team Providers Care Aegis Operations Specialist Name Role Phone Clinic - [facility] Unavailable Ralph Kang MD Unavailable [phone] González Pendleton MD Unavailable Radha Cazares MD Primary Care Provider Penny Conde Unavailable Kimber Toscano APRN ENGINE SERVICE REPAIRER Unavailable Reason for Referral * Consultation (Routine: Next available opening) - Pending Review Specialty Diagnoses / Procedures Referred By Contac t Referred To Contact Cardiovascular Disease Diagnoses Coronary artery disease involving [place] coronary artery of white [place] heart without angina pectoris Benign essential hypertension González Pendleton MD [address] [facility] [address] [place] [address] Referral ID Status Reason Start Date Expiration Date V isits Requested Visits Authorized [id number] Pending Review 02/07/2024 02/06/2025 1 1 Question Answer Follow-up with: Self Scheduling Instructions: [facility] will call you to coordinate your care as prescribed by your provider. If you have concerns about scheduling, please call [phone]. Comments [facility] will call you to coordinate your care as prescribed by your provider. If you have concerns about scheduling, please call [phone]. Reason for Visit * Reason Comments Consult heart failure. * Consultation (Routine: Next available opening) - Pending Review Specialty Diagnoses / Procedures Referred By Contac t Referred To Contact Cardiovascular Disease Diagnoses Coronary artery disease involving [place] coronary artery of [place] heart without angina pectoris Kimber Toscano APRN ENGINE SERVICE REPAIRER [address] [id number] Referral ID Status Reason Start Date Expiration Date V isits Requested Visits Authorized [id number] Pending Review 08/05/2023 08/04/2024 1 1 Encounter Details Date Type Department Care Team (Late st Contact Info) Description 02/07/2024 9:00 AM CDT Office Visit [facility] Heart [facility] [id number] [place] [address] [address] [place] [id number] Kimber Toscano APRN ENGINE SERVICE REPAIRER [address] [place] [address] González Pendleton MD [address] [id number] Benign essential hypertension (Primary Dx); Coronary artery disease involving [place] coronary artery of white [place] heart without angina pectoris Social History Tobacco Use Types Packs/Day Years [...] on file documented as of this encounter Last Filed Vital Signs Vital Sign Reading Time Taken Comments Blood Pressure 128/62 02/07/2024 9:10 AM CDT Pulse 68 02/07/2024 9:10 AM CDT Temperature - - Respiratory Rate - - Oxygen Saturation - - Inhaled Oxygen Concentration - - Weight 97.5 kg (215 lb) 02/07/2024 9:10 AM CDT Height 182.9 cm (6') 02/07/2024 9:10 AM CDT Body Mass Index 29.16 02/07/2024 9:10 AM CDT documented in this encounter Progress Notes * González Pendleton MD - 02/07/2024 9:00 AM CDT HISTORY OF PRESENT ILLNESS: Andrea Lilly a 79 year old male with coronary artery disease, hypertension, dementia, and myasthenia gravis, was seen today for follow up. Since last seen 08/05/2023 the patient was seen on 1 occasion our emergency room November 2023 for an isolated episode of atypical chest pain. ECGs and troponin levels were normal. Since then, the patient remains entirely free of any symptoms with no limits in his usual home activities. As we have noted during previous visits, the patient's dementia makes obtaining accurate history is difficult. He and his are excited about their grandson success at the college level in [employer], where he has been placed on academic scholarship and has excelled at football. The patient remains physically active at home and his feels that he is the best that he has been for several months. Unfortunately, the patient's memory continues to decline. Past Medical History 1) Dementia moderately progressive. Followed by neurologist 2) Myasthenia gravis : well controlled 3) RBBB 4) Hypertension 5) Coronary artery disease A) CAG 04/2023 LMCA normal CX normal LAD 75% proximal IFR 0.79 sp implantation of 32 x 30 Everolimuseluting Synergy XD stent, post dilated to 3.5 mm. PTCA D1 with 2.00 mm balloon. CX normal RCA normal B) atypical chest pain 05/2023 negative regadenoson nuclear stress test C) ED visit for chest pain. No ECG changes normal troponin. Orders this Visit: No orders of the defined types were placed in this encounter. No orders of the defined types were placed in this encounter. There are no discontinued medications. Encounter Diagnosis Name Primary? Coronary artery disease involving white mountain coronary artery of white mountain heart without angina pectoris CURRENT MEDICATIONS: Current Outpatient Medications Medication Sig Dispense Refill aspirin (ASA) 81 MG chewable tablet Take 81 mg by mouth every evening atorvastatin (LIPITOR) 40 MG tablet Take 1 tablet (40 mg) by mouth daily (Patient taking differently: Take 40 mg by mouth at bedtime) 90 tablet 3 clopidogrel (PLAVIX) 75 MG tablet Take 1 tablet (75 mg) by mouth daily Start the day after you finish Brilinta.Take 300 mg (4 tablets) for your first dose, then 1 tablet daily thereafter. 90 tablet 1 diltiazem ER COATED BEADS (CARDIZEM CD/CARTIA XT) 180 MG 24 hr capsule Take 180 mg by mouth daily latanoprost (XALATAN) 0.005 % ophthalmic solution instill 1 drop in both eyes every night at bedtime losartan-hydrochlorothiazide (HYZAAR) 100-12.5 MG tablet Take 1 tablet by mouth daily omeprazole (PRILOSEC) [address] capsule Take 40 mg by mouth daily pyridostigmine (MESTINON) 60 MG tablet TAKE 2 TABLETS BY MOUTH FOUR TIMES DAILY QUEtiapine (SEROQUEL) 25 MG tablet Take 12.5 mg by mouth At Bedtime tamsulosin (FLOMAX) 0.4 MG capsule Take 0.4 mg by mouth At Bedtime nitroGLYcerin (NITROSTAT) 0.4 MG sublingual tablet For chest pain place 1 tablet under the tongue every 5 minutes for 3 doses. If symptoms persist 5 minutes after 1st dose call 911. 25 tablet 3 ALLERGIES Allergies Allergen Reactions Donepezil Headache Other reaction(s): Headache PAST MEDICAL, SURGICAL, FAMILY, SOCIAL HISTORY: History was reviewed and updated as needed, see medical record. Review of Systems: A 12-point review of systems was completed, see medical record for detailed review of systems information. Physical Exam: Vitals: BP 128/62 Pulse 68 Ht 1.829 m (6') Wt 97.5 kg (215 lb) BMI 29.16 kg/m?? Constitutional: No apparent distress pleasant and cooperative I have reviewed the patient's most recent nuclear stress test HEENT: pupils equal round reactive to light, thyroid normal size, JVP is normal Chest: Clear to percussion and auscultation Cardiac: Normal S1, normal S2 no S3, no murmur or click ASSESSMENT: The patient is presently asymptomatic on guideline directed medical therapy with optimal blood pressure and LDL cholesterol levels. I would be hesitant to advise any repeat invasive evaluation in theabsence of objective evidence of ischemia or myocardial necrosis or refractory symptoms. We have reviewed the benefits of continued regular activity, compliance with medical therapy, and a Mediterrane an-style diet. Will plan for follow-up in about 1 year. RECOMMENDATIONS: 1) continue present medications 2) follow up in one year 3) Mediterranean style diet 4) regular exercise program Recent Lab Results: I have personally reviewed his ECG from November 2023 as well as the emergency room notes. I have reviewed his nuclear stress test results. His most recent LDL cholesterol is 34. LIPID RESULTS: Lab Results Component Value Date CHOL 116 08/30/2023 HDL 64 08/30/2023 LDL 34 08/30/2023 TRIG 88 08/30/2023 LIVER ENZYME RESULTS: Lab Results Component Value Date ALT 22 08/30/2023 CBC RESULTS: Lab Results Component Value Date WBC 5.7 11/14/2023 RBC 4.40 11/14/2023 HGB 13.9 11/14/2023 HCT 40.3 11/14/2023 MCV 92 11/14/2023 MCH 31.6 11/14/2023 MCHC 34.5 11/14/2023 RDW 12.1 11/14/2023 PLT 174 11/14/2023 BMP RESULTS: Lab Results Component Value Date NA 141 11/14/2023 POTASSIUM 3.9 11/14/2023 CHLORIDE 104 11/14/2023 CO2 28 11/14/2023 ANIONGAP 9 11/14/2023 GLC 91 11/14/2023 BUN 16.5 11/14/2023 CR 1.04 11/14/2023 GFRESTIMATED 73 11/14/2023 PARDEEP 9.6 11/14/2023 A1C RESULTS: No results found for: A1C INR RESULTS: Lab Results Component Value Date INR 0.99 04/22/2023 We greatly appreciate the opportunity to be involved in the care of your patient, Andrea Lilly. Sincerely, González Pendleton MD CC Kimber Toscano, FENCE SETTER ENGINE SERVICE REPAIRER [address] [id number] documented in this encounter Plan of Treatment Scheduled Referrals Name Type Priority Associated Diagnoses Orde r Schedule Follow-Up with Cardiology Referral Routine: Next available opening Coronary artery disease involving [place] coronary artery of [place] heart without angina pectoris Benign essential hypertension Expected: 02/06/2025 (Approximate), Expires: 02/06/2025 documented as of this encounter Visit Diagnoses Diagnosis Benign essential hypertension- Primary Essential hypertension, benign Coronary artery disease involving [place] coronary artery of white [place] heart without angina pectoris documented in this encounter Care Teams Aegis Operations Specialist Relationship Specialty Start Date End Date Radha Cazares MD [facility] [address] [place] [address] PCP - General Internal Medicine 04/20/[address] [address] 04/07/23 Ralph Kang MD [address] [id number] Cardiovascular Disease 04/08/23 González Pendleton MD [address] [address] Cardiovascular Disease 04/20/[address] [facility] [address] [address] Cardiac Rehabilitation Therapist 04/29/23 04/29/24 Kimber Toscano APRN ENGINE SERVICE REPAIRER [address] [address] Assigned Heart and Vascular Provider 05/28/23 02/22/24 documented as of this encounter
--- OUTSIDE RECORDS SUMMARY | 2024-05-04 13:10 | XMS_ITS | Encounter Summary ---
Author Organization [place] Address [address] [place] [address] Care Team Providers Care Sanitation Technician Name Role Phone [facility] Unavailable Ralph Kang MD Unavailable [phone] González Pendleton MD Unavailable [phone] Radha Cazares MD Primary Care Provider Penny Conde Unavailable [phone] Kimber Toscano APRN CLUTCH OPERATOR Unavailable Encounter Details Date Type Department Care Team (Latest Contact Info) Description 02/07/2024 Travel Social History Tobacco Use Types Packs/Day Years [...] on file documented as of this encounter Plan of Treatment Not on file documented as of this encounter Visit Diagnoses Not on filedocumented in this encounter Care Teams Sanitation Technician Relationship Specialty Start Date End Date Radha Cazares MD [facility] [address] [place] [address] PCP - General Internal Medicine 04/20/[address] [address] 04/07/23 aRlph Kang MD [address] [address] Cardiovascular Disease 04/08/23 González Pendleton MD [address] [address] Cardiovascular Disease 04/20/23 Penny Conde EP [facility] [address] [address] Cardiac Rehabilitation Therapist 04/29/23 04/29/24 Kimber Toscano APRN CLUTCH OPERATOR [address] [address] Assigned Heart and Vascular Provider 05/28/23 02/22/24 documented as of this encounter
--- OUTSIDE RECORDS SUMMARY | 2024-05-04 13:10 | XMS_ITS | Encounter Summary ---
Author Organization [place] Address [facility] [place] [address] Care Team Providers Care Anthropologist Physical Name Role Phone Provider, Former [facility] Ralph Kang MD Unavailable González Pendleton MD Unavailable Radha Cazares MD Primary Care Provider Penny Conde Unavailable [phone] González Pendleton MD Unavailable [phone] Kimber Toscano APRN DIRECTOR OF CAPITAL GIVING Unavailable [phone] González Pendleton MD Unavailable Reason for Visit * Reason Onset Date Comments Appointment 04/19/2023 Add-on Encounter Details Date Type Department Care Team (Late st Contact Info) Description 04/19/2023 [facility] [address] [facility] [address] [id number] González Pendleton MD [address] [facility] [address] [address] Appointment (Add-on) Social History Tobacco Use Types Packs/Day Years Used Date Smoking Tobacco: Never Assessed PHQ-2 Answer Date Recorded PHQ-2 Score 0 04/20/2023 Sex and Gender Information Value Date Recorded Sex Assigned at Male 04/12/2023 11:30 PM CDT Gender Identity Male 04/12/2023 11:30 PM CDT Sexual Orientation Not on file COVID-19 Exposure Response Date Recorded In the last 10 days, have yo u been in contact with someone who was confirmed or suspected to have Coronavirus/COVID-19? No / Unsure 04/22/2023 9:30 AM CDT documented as of this encounter Miscellaneous Notes * Telephone Encounter - Adebayo Sherwood RN - 04/19/2023 11:51 AM CDT Routing to NATHAN Villalobos - for appointment tomorrow. Patient had ED visit and was referred for urgent slot per ED PARegan for abnormal Lexiscan results. ?? Active left sided chest pain ?? Negative troponins ?? Positive D-Dimer ?? Negative CT scan. ?? Per review of Lexiscan, there is no active ischemia however a previous infarction is noted. ?? Only cardiac history noted is hypertension. Per previous TE today Pt says he is feeling good today. It appears he has a VM regarding a cardiology appt tomorrow am. To check that and call me back if unable to find the information on location. They will do so. Adebayo Sherwood RN * Telephone Encounter - Desirae Whitfield - 04/19/2023 9:35 AM CDT Health Call Center Phone Message May a detailed message be left on voicemail: yes Reason for Call: Other: This patient has been added to Dr Pendleton for tomorrow per a call from Wang Serrato from the ER for this patient to be seen KRISTA LVM for pt that this appt has been scheduled, pt has not confirmed it yet Action Taken: Other: Cardiology Travel Screening: Not Applicable Thank you! [facility] documented in this encounter Plan of Treatment Not on file documented as of this encounter Visit Diagnoses Not on filedocumented in this encounter Care Teams Anthropologist Physical Relationship Specialty Start Date End Date Provider, Former PCP - General 10/22/21 04/19/23 Radha Cazares MD [facility] [address] [place] [address] PCP - General Internal Medicine 04/20/23 [facility] [address] [place] [address] 04/07/23 Ralph Kang MD [address] [address] Cardiovascular Disease 04/08/23 González Pendleton MD [address] [address] Cardiovascular Disease 04/20/23 Penny Conde EP [facility] [address] [address] Cardiac Rehabilitation Therapist 04/29/23 04/29/24 González Pendleton MD [address] [address] Assigned Heart and Vascular Provider 04/23/23 05/27/23 Kimber Toscano APRN CNP [address] [address] Assigned Heart and Vascular Provider 05/28/23 02/22/24 González Pendleton MD [address] [id number] Assigned Heart and Vascular Provider 02/23/24 documented as of this encounter
--- OUTSIDE RECORDS SUMMARY | 2024-05-04 13:10 | XMS_ITS | Referral Summary ---
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 Refill Request (Clopidogrel and Atorvastatin) 02/07/2024 Travel 02/07/2024 9:00 AM CDT Office Visit [facility] [id number] [place] [address] [address] [place] [address] Kimber Toscano APRN CNP Manoles, Michael Jon, MD Benign essential hypertension (Primary Dx); Coronary artery disease involving nikolski coronary artery of nikolski heart without angina pectoris from Last 3 Months Allergies Active Allergy Reactions Criticality Noted Date [...] type,Status post coronary angiogram,Coronary artery disease involving nikolski coronary artery of nikolski heart, unspecified whether angina present For chest [...] 75 MG tabletIndications: Coronary artery disease involving nikolski coronary artery of nikolski heart without angina pectoris Take 1 tablet (75 mg) by mouth daily Start the day after you finish Brilinta.Take 300 mg (4 tablets) for your first dose, then 1 tablet daily thereafter. 90 tablet 3 04/06/2024 Active atorvastatin (LIPITOR) 40 MG tabletIndications: Coronary artery disease involving nikolski coronary artery of nikolski heart, unspecified whether angina present Take 1 tablet (40 mg) by mouth daily 90 tablet 3 04/06/2024 Active atorvastatin (LIPITOR) 40 MG tabletIndications: Coronary artery disease involving nikolski coronary artery of nikolski heart, unspecified whether angina present Take 1 tablet (40 mg) by mouth daily 90 tablet 3 04/22/2023 04/06/2024 Discontinued (Reorder (No AVS)) clopidogrel (PLAVIX) 75 MG tabletIndications: Coronary artery disease involving nikolski coronary artery of nikolski heart without angina pectoris Take 1 tablet (75 mg) by mouth daily Start the day after you finish Brilinta.Take 300 mg (4 tablets) for your first dose, then 1 tablet daily thereafter. 90 tablet 1 10/10/2023 04/06/2024 Discontinued (Reorder (No AVS)) Active Problems Problem Noted Date Diagnosed Date Coronary artery disease invo lving nikolski coronary artery of nikolski heart 05/23/2023 Benign essential hypertension 05/23/2023 Hyperlipidemia with target LDL less than 70 05/04 Chest pain 05/23/2023 Abnormal cardiovascular stress test 04/22/2023 Status post coronary angiogram 04/22/2023 Abnormal findings on diagnos tic imaging of heart and coronary circulation 04/22/2023 Chest pain, unspecified type 04/22/2023 Social History Tobacco Use Types Packs/Day Years [...] ST Respiratory Rate 20 11/14/2023 3:24 PM [facility] Oxygen Saturation 100% 11/14/2023 3:24 PM [facility] [employer] Inhaled Oxygen Concentration - - Weight 97.5 kg (215 lb) 02/07/2024 9:10 AM CDT Height 182.9 cm (6') 02/07/2024 9:10 AM CDT Body Mass Index 29.16 02/07/2024 9:10 AM CDT Plan of Treatment Not on file Medical Devices Implanted Type Area Utility Teller Device Identifier Shelf Expiration Date Model / Serial / Lot Stent Coronary Dre Synergy Xd Mr Us [id number] - [id number] Implanted:Qty: 1 on 04/22/2023 at [facility] Stent Drug Eluting (DRE) [employer] 10/25/2024 [id number] / / [id number] Procedures Procedure Name Priority Date/Time Associated Diagnosis Comments BASIC METABOLIC PANEL STAT 11/14/2023 12:01 PM [facility] LIPID PROFILE Routine 08/30/2023 11:24 AM [facility] [employer] Hyperlipidemia with target LDL less than 70 from Last 3 Months or Most Recently Relevant to Health Maintenance Results * Basic metabolic panel (BMP) (11/14/2023 12:01 PM [facility]) Sodium 141 135 - 145 mmol/L 11/14/2023 12:35 PM [facility] Comment:Reference intervals for this test were updated on 06/28/2023 to more accurately reflect our healthy population. There may be differences in the flagging of prior results with similar values performed with this method. Interpretation of those prior results can be made in the context of the updated reference intervals. Potassium 3.9 3.4 - 5.3 mmol/L 11/14/2023 12:35 PM [facility] Chloride 104 98 - 107 mmol/L 11/14/2023 12:35 PM [facility] Carbon Dioxide (CO2) 28 22 - 29 mmol/L 11/14/2023 12:35 PM [facility] Anion Gap 9 7 - 15 mmol/L 11/14/2023 12:35 PM [facility] Urea Nitrogen 16.5 8.0 - 23.0 mg/dL 11/14/2023 12:35 PM [facility] Creatinine 1.04 0.67 - 1.17 mg/dL 11/14/2023 12:35 PM [facility] GFR Estimate 73 >60 mL/min/1. 73m2 11/14/2023 12:35 PM [facility] Calcium 9.6 8.8 - 10.2 mg/dL 11/14/2023 12:35 PM [facility] Glucose 91 70 - 99 mg/dL 11/14/2023 12:35 PM [facility] Blood STRUCTURE OF LEFT HAND / Unknown Venipuncture / Unknown 11/14/2023 12:01 PM [facility] MEDIC[facility] 11/14/2023 12:09 PM [facility] INTERNAL MEDICINE Daquan Read MD LAB - BLOOD ORDERABL ES [facility] [address] Lab (1st floor, no room number) [place] [address], [facility] [phone] * Lipid Profile (08/30/2023 11:24 AM [facility]IC[facility]) Cholesterol 116 <200 mg/dL 08/30/2023 7:35 PM [facility] INTERNAL MEDIC[facility] Triglycerides 88 <150 mg/dL 08/30/2023 7:35 PM [facility] INTERNAL MEDIC[facility] Direct Measure HDL 64 >=40 mg/dL 2022 7:35 PM [facility] INTERNAL MEDICINE [facility] LDL Cholesterol Calculated 34 <=100 mg/dL 08/30/2023 7:35 PM [facility] INTERNAL MEDICINE [facility] Non HDL Cholesterol 52 <130 mg/dL 08/30/2023 7:35 PM CH[facility] INTERNAL MEDICINE [facility] Blood STRUCTURE OF RIGHT UPPER LIMB / Unknown Venipuncture / Unknown 08/30/2023 11:24 AM [facility]NAL MEDICINE 08/30/2023 11:24 AM [facility] INTERNAL MEDICINE Narrative [facility] - 08/30/2023 7:35 PM [facility]IC[facility] Cholesterol Desirable: ??<200 mg/dL Triglycerides Normal: ??Less [...] or equal to 220 mg/dL Kimber Toscano SAPNA FOLDER MACHINE OPERATOR LAB - BLOOD ORD ERABLES [facility] [address] [facility], [address] [place] [address], [facility] [phone] from Last 3 Months or Most Recently Relevant to Health Maintenance Advance Directives For more information, please contact: [phone] * Full Code (Latest Code Status on File) Date Activated Date Inactivated Comments 05/23/2023 7:07 PM 05/24/2023 2:09 PM All basic an d advanced life-sustaining interventions are performed as appropriate Question Answer Comments Code status determined by: Unable to det ermine; FULL CODE until documents or legal decision maker available Care Teams Douper Relationship Specialty Start Date End Date Radha Cazares MD [facility] [address] [place] [address] PCP - General Internal Medicine 04/20/[address] [address] 04/07/23 Ralph Kang MD [address] [id number] Cardiovascular Disease 04/08/23 González Pendleton MD [address] [id number] Cardiovascular Disease 04/20/23 González Pendleton MD [address] [place] [address] Assigned Heart and Vascular Provider 02/23/24
--- OUTSIDE RECORDS SUMMARY | 2024-05-04 13:11 | XMS_ITS | Referral Summary ---
Author Organization [facility] Address [address] [place] [address] Care Team Providers Care Property Valuer Name Role Phone Elsewhere, Pcp Primary Care Provider Unavailabl e Source Comments Patient records contain information from all sites at [facility]. For routine questions regarding patient records, call [phone] during business hours, M-F 8:00 AM - 5:00 PM Central Time. Record requests for emergency care only can be directed to [phone] at any time.[facility] Allergies Active Allergy Reactions Criticality Noted Date Comments Donepezil Headache 06/09/2021 Medications Medication Sig Dispensed Refills Start Date End Date Status aspirin [address] tablet Take 81 mg by mouth daily. 09/05/2017 Active dilTIAZem CD (CARDIZEM CD/CARTIA XT) 180 mg 24 hr capsule Take 180 mg by mouth daily. 01/05/2019 Active latanoprost (XALATAN) 0.005 % ophthalmic solution INT 1 DROP IN OU QHS 12 01/07/2019 Active losartan-hydroCHLOR Othiazide (HYZAAR) 100-12.5 mg per tablet Take by mouth daily. 1 01/02/2019 Active omeprazole (PriLOSEC) [address] capsule Take 1 capsule by mouth daily. 09/13/2017 Active tamsulosin (FLOMAX) 0.4 mg 24 hr capsule Take 0.4 mg by mouth daily. 0 02/17/2019 Active QUEtiapine (SEROquel) 25 mg tablet Take 25 mg by mouth as needed. Take 1/4 to 1/2 tablet every 8 hours while awake as needed. Take 1/2 to 1 tablet in evening as needed for anxiety. 01/03/2023 Active ticagrelor (BRILINTA) 90 mg tablet Take 90 mg by mouth 2 (two) times a day. 04/22/2023 Active atorvastatin (LIPITOR) 40 mg tablet Take 40 mg by mouth daily. 04/22/2023 Active nitroglycerin (NITROSTAT) 0.[address] 0.4 mg under the tongue every 5 (five) minutes as needed for chest pain. 05/17/2023 Active pyRIDostigmine (MESTINON) 60 mg tablet Take 2 tablets (120 mg total) by mouth 3 (three) times a day. 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 No 03/24/2023 Within the last year, have y ou been humiliated or emotionally abused in other ways by your partner or ex-partner? No Within the last year, have y ou been kicked, hit, slapped, or otherwise physically hurt by your partner or ex-partner? No 03/24/2023 Within the last year, have y ou been raped or forced to have any kind of sexual activity by your partner or ex-partner? No 03/24/2023 Social Connection and Isolat ion Panel [NHANES] Answer Date Recorded In a typical week, how many times do you talk on the phone with family, friends, or neighbors? More than three times a week 03/28/2021 How often do you get togethe r with friends or relatives? Three times a week 03/28/2021 How often do you attend [facility] or episcopalian services? More than 4 times per year 03/28/2021 Do you belong to any clubs o r organizations such as latter day groups, unions, fraternal or athletic groups, or school groups? Yes 03/28/2021 How often do you attend meet ings of the clubs or organizations you belong to? More than 4 times per year 03/28/2021 Are you , , di vorced, , never , or living with a partner? 03/28/2021 AUDIT-C Answer Date Recorded Q1: How often do you have a drink containing alc ohol? 2-4 times a month 03/28/2021 Q2: How many drinks containi ng alcohol do you have on a typical day when you are drinking? 1 or 2 03/28/2021 Q3: How often do you have si x or more drinks on one occasion? Never 03/28/2021 Overall Financial Resource Strain (CARDIA) Answe r Date Recorded How hard is it for you to pa y for the very basics like food, housing, medical care, and heating? Not hard at all 03/24/2023 [facility] - Occupational Stress Questionnaire Answer Date Recorded Do you feel stress - tense, restless, nervous, or anxious, or unable to sleep at night because your mind is troubled all the time - these days? Only a little 03/28/2021 Exercise Vital Sign Answer Date Recorde d On average, how many days pe r week do you engage in moderate to strenuous exercise (like a brisk walk)? 5 days 03/24/2023 On average, how many minutes do you engage in exercise at this level? 30 min 03/24/2023 Hunger Vital Sign Answer Date Recorded Within the past 12 months, y ou worried that your food would run out before you got the money to buy more. Never true 03/24/20 23 Within the past 12 months, t he food you bought just didn't last and you didn't have money to get more. Never true 03/24/2023 PRAPARE - Transportation Answer Date Re corded In the past 12 months, has l ack of transportation kept you from medical appointments or from getting medications? No 03/04 In the past 12 months, has l ack of transportation kept you from meetings, work, or from getting things needed for daily living? No 03/24/2023 Nutrition Answer Date Recorded Nutrition: EVOO Fat Source No 03/24 On average, how many serving s of fruits and vegetables do you eat per day (serving size is equal to 1 cup or approximately the size of a tennis ball)? 3-5 03/24/2023 Dental Answer Date Recorded Dental: Regular Dentist Yes 10/19/19 Employment Answer Date Recorded Employment status Retired 03/24/2023 Housing Stability Answer Date Recorded What is your living situation today? I have a [facility] place to live 03/24/2023 Education Answer Date Recorded What is the highest level of school you have completed or the highest degree you have received? Associate degree: occupational, technical, or vocational program 03/28/2021 Sex and Gender Information Value Date Recorded Sex Assigned at Male 07/03/2021 1:40 PM CDT Gender Identity Male 07/03/2021 1:40 PM CDT Sexual Orientation Choose not to disclose 2019 2:05 PM CDT Last Filed Vital Signs Vital Sign Reading Time Taken Comments Blood Pressure 139/60 07/14/2023 10:41 AM CDT Pulse 66 07/14/2023 10:41 AM CDT Temperature 36.1 ??C (97 ??F) 03/20/2020 2:43 PM CDT Respiratory Rate - - Oxygen Saturation - - Inhaled Oxygen Concentration - - Weight 96.8 kg (213 lb 6.5 oz) 07/14/2023 10:36 AM CDT Height - - Body Mass Index - - Plan of Treatment Upcoming Encounters Date Type Department Care Team (Late st Contact Info) Description 07/18/2024 1:00 PM CDT Office Visit Department of Neurology in [place], [place] [address] [place] [address] Jose C Mckeon M.D. [address] [place] [address] Care Teams Property Valuer Relationship Specialty Start Date End Date Elsewhere, Pcp PCP - General Internal Medicine 06/22/23
--- OUTSIDE RECORDS SUMMARY | 2024-05-04 13:11 | XMS_ITS | Clinical Summary ---
Author Organization [facility] Address [address] [place] [address] Care Team Providers Care Health Care Assistant Name Role Phone Elsewhere, Pcp Primary Care Provider Unavailabl e Source Comments Patient records contain information from all sites at [facility]. For routine questions regarding patient records, call [phone] during business hours, M-F 8:00 AM - 5:00 PM Central Time. Record requests for emergency care only can be directed to [phone] at any time.[facility] Allergies Active Allergy Reactions Criticality Noted Date [...] week 03/28/2021 How often do you attend [facility] or yarsani services? More than 4 times per year 03/28/2021 Do you belong to any clubs o r organizations such as samaritan groups, unions, fraternal or athletic groups, or [...] and heating? Not hard at all 03/24/2023 [facility] - Occupational Stress [...] your living situation today? I have a [facility] place to live 03/24/2023 Education Answer Date [...] CDT Office Visit Department of Neurology in [place], [place] [address] [address] Jose C Mckeon M.D. [address] [place] [address] Health Maintenance Due Date Last Done Comments Hepatitis C Screening 1945 Fall Risk Screen (Annual) 10/03/2023 COVID-19 Vaccine (2022-2 4 season) 2023 07/06/2023, 03/07/2023, 06/25/2022, Additional history exists Influenza Vaccine (#1) 2024 , 06/25/2022, 07/09/2021, Additional history exists Creatinine Level (Kidney Fun ction Test) 11/14/2024 11/14/2023, 08/30/2023, 05/24/2023, Additional history exists Glucose Test for Med Monitoring 11/14/2024 11/14/2023, 08/30/2023, 05/24/2023, Additional history exists Potassium Level 11/14/2024 11/14/2023, 08/04, 05/24/2023, Additional history exists Sodium Level 11/14/2024 11/14/2023, 08/04, 05/24/2023, Additional history exists DTaP,Tdap,and Td Vaccines (3 - Td or Tdap) 03/07/2033 03/07/2023, 06/12/2012, 06/11/2005, Additional history exists Pneumococcal vaccine (65+ years) Completed 11/08/19, 05/25/2011 Zoster Vaccines Completed 09/18/2020, 02/2020, 09/04/2014 Care Teams Health Care Assistant Relationship Specialty Start Date End Date Elsewhere, Pcp PCP - General Internal Medicine 06/22/23
--- OUTSIDE RECORDS SUMMARY | 2024-05-04 13:11 | XMS_ITS ---
Author Organization [facility] Address [address] [place] [address] Care Team Providers Care Salt Lifter Name Role Phone Unavailable Unavailable Unavailable Surgery Details Not on file Complications Check Surgery Details section. Procedure Estimated Blood Loss Check Surgery Details section. Procedure Findings Check Surgery Details section. Procedure Specimens Taken Check Surgery Details section.
== END 2024-05-04 15:07 | disposition home or self-care (01) ==
PROVIDERS: Emergency Provider Family Medicine; PCP Internal Medicine
DX: L76.21 Postprocedural hemorrhage of skin and subcutaneous tissue following a dermatologic procedure (principal)
CPT/HCPCS: 99282; 99283; 99284

== ENCOUNTER 2024-09-18 08:44 | Outpatient (CLI) | payer MEDICARE, OTHER, SELFPAY | END 2024-09-18 08:45 | disposition home or self-care (01) | LOC: NFLDREF 09-19 05:33 | PROVIDERS: PCP Internal Medicine; Referring Provider Internal Medicine; Visit Provider Internal Medicine | DX: E78.5 Hyperlipidemia, unspecified (principal); I10 Essential (primary) hypertension | CPT/HCPCS: 80048; 80061 ==

== ENCOUNTER 2025-09-23 14:05 | Outpatient (CLI) | payer MEDICARE, OTHER, SELFPAY | END 2025-09-23 14:06 | disposition home or self-care (01) | PROVIDERS: PCP Internal Medicine; Visit Provider Internal Medicine | DX: I25.10 Atherosclerotic heart disease of native coronary artery without angina pectoris (principal); I10 Essential (primary) hypertension | CPT/HCPCS: 80048; 80061 ==